=== PATIENT | male | born 1945 | race Caucasian/White ===

== ENCOUNTER 2021-08-02 07:54 | Day surgery (SDC) | payer OTHER ==
[~2021-08-02] VITALS: Ht 182.9 cm; Wt 73.9 kg
[2021-08-02] MEDS ORDERED: ATEN25 PO (08:36)
[2021-08-02] MEDS ORDERED: NORVASC10 MG PO (08:36)
[2021-08-02] MEDS ORDERED: LISI20 PO (08:37)
[2021-08-02] MEDS ORDERED: FOLI1 PO (08:37)
[2021-08-02] MEDS ORDERED: Ocuvite Preser1 EACH PO (08:38)
--- NOTE | 2021-08-02 08:58 | NUR ---
Ambulatory in Day Surgery History, Chart, Medications and Allergies reviewed before start of procedure. Lungs clear T/O to Auscultation. Pre-Op teaching done. Pt verbalizes understanding. Patient States Post-Procedure ride home has been arranged.
== END 2021-08-02 12:05 | disposition home or self-care (01) ==
LOC: ORSCMMR 07:54 → ORD 09:30 → ORSCMMR 09:30
PROVIDERS: Surgery
PROC: 0YU60JZ Supplement Left Inguinal Region with Synthetic Substitute, Open Approach (ICD-10-PCS; principal; 2021-08-02 09:30)
DX: K40.90 Unilateral inguinal hernia, without obstruction or gangrene, not specified as recurrent (principal); I10 Essential (primary) hypertension; K21.9 Gastro-esophageal reflux disease without esophagitis; B19.20 Unspecified viral hepatitis C without hepatic coma; A69.20 Lyme disease, unspecified; Z79.899 Other long term (current) drug therapy
CPT/HCPCS: A9270; C1781; J0690; J1100; J1885; J2250; J2370; J2405; J2704; J3010; J7120

== ENCOUNTER 2023-07-29 14:07 | Emergency (ER) | payer OTHER ==
[~2023-07-29] VITALS: Ht 182.9 cm; Wt 72.6 kg
[~2023-07-29 14:07] MED LIST: AMLO10 PO; ATEN25 PO; BUME2 PO; COLACE100 MG PO; ELIQUIS5 M2 PO; ELIQUIS5 M3 PO; FOLI1 PO; LISI20 PO; MELATONIN5 M1 PO; METAMUCIL POWD798 GM PO; METO25 PO; MIDO5 PO; MIRALAX17 GM; MIRALAX17 GM PO; MULVITA PO; NORVASC10 MG PO; OMEP20ER PO; OXYC10TA19 PO; Ocuvite Preser1 EACH PO; PRESERVISION A1 EAC2; SENN187 PO; SODCHL1 PO; TAMS.4ER PO; URE-NA PO; VITAMIN D325 MC3 PO; Vitamin B Comple1 EA PO; Vitamin D1000 UNI1 PO
[2023-07-29] MEDS ORDERED: NS 1,000 ML IV ONE (14:42)
[2023-07-29] MEDS ORDERED: Diltiazem HCl 5 MG / ML 5ML Vial IV ONE (15:00)
[2023-07-29 15:07] LABS: BASOPHILS ABSOLUTE AUTO 0.03 K/mm3 (0.00-0.23); BASOPHILS PERCENT AUTO 0 % (0-2); EOSINOPHILS ABSOLUTE AUTO 0.01 K/mm3 (0.00-0.68); EOSINOPHILS PERCENT AUTO 0 % (0-6); Hematocrit 38.6 % (37.0-53.0); Hemoglobin 13.6 g/dL (13.5-17.5); IMMATURE GRAN ABSOLUTE AUTO 0.19 K/mm3 (0.00-0.10); IMMATURE GRAN PERCENT AUTO 2 % (0-1); LYMPHOCYTES ABSOLUTE AUTO 0.57 K/mm3 (0.84-5.20); LYMPHOCYTES PERCENT AUTO 5 % (21-46); MONOCYTES ABSOLUTE AUTO 0.94 K/mm3 (0.16-1.47); MONOCYTES PERCENT AUTO 9 % (4-13); Mean Corpuscular HGB 31.3 pg (26.0-34.0); Mean Corpuscular HGB Conc 35.2 g/dL (31.5-36.5); Mean Corpuscular Volume 89 fL (80-100); NEUTROPHILS ABSOLUTE AUTO 9.03 K/mm3 (1.96-9.15); NEUTROPHILS PERCENT AUTO 84 % (41-73); Platelet Count 431 K/mm3 (150-400); RDW Coefficient Variation 13.3 % (11.7-14.2); RDW Standard Deviation 43.5 fL (35.1-46.3); Red Blood Cell Count 4.34 M/mm3 (4.30-5.90); White Blood Cell Count 10.77 K/mm3 (4.00-11.30)
[2023-07-29] MEDS ORDERED: dilTIAZem HCL 125 MG in Dextrose 5% 100 ML IV SCH (15:25)
[2023-07-29 15:45] LABS: Magnesium, Blood 1.5 mg/dL (1.6-2.4)
[2023-07-29 15:47] LABS: Thyroid Stimulating Hormone 1.89 uIU/mL (0.360-4.800)
[2023-07-29] MEDS ORDERED: Etomidate 2MG / ML 10ML Vial IV ONE (15:50)
[2023-07-29] MEDS ORDERED: Mag Sulfate 1 GM/D5% 100ML 100 ML IV ONE (15:55)
[2023-07-29] MEDS ORDERED: Adenosine 3 MG/ML 2 ML Vial IV ONE (16:00)
[2023-07-29 17:06] LABS: Albumin, Blood 2.7 g/dL (3.4-5.0); Albumin/Globulin Ratio 0.8 (0.8-1.8); Bilirubin, Total 0.2 mg/dL (0.1-1.0); Bun/Creatinine Ratio 69.6 (12.0-20.0); Calcium, Blood 8.7 mg/dL (8.5-10.1); Creatinine, Blood 0.92 mg/dL (0.60-1.20); Globulin, Blood 3.4 g/dL (2.2-4.0); Potassium, Blood 4.3 mmol/L (3.5-5.5); Total Protein, Blood 6.1 g/dL (6.4-8.2)
[2023-07-29 20:00] VITALS: BP 112/98
== END 2023-07-29 20:25 | disposition home or self-care (01) ==
LOC: ER 14:07
PROVIDERS: Physician Assistant; Student in an Organized Health Care Education/Training Program
DX: I48.92 Unspecified atrial flutter (principal); E83.42 Hypomagnesemia; I10 Essential (primary) hypertension; Z88.1 Allergy status to other antibiotic agents; Z88.8 Allergy status to other drugs, medicaments and biological substances; Z79.01 Long term (current) use of anticoagulants; Z79.899 Other long term (current) drug therapy
CPT/HCPCS: 51702; 71045; 80053; 83735; 84443; 85025; 92960; 93005; 93010; 96365-59; 96366-59; 96375-59; 99285-25; J0153; J3475; J7030

== ENCOUNTER → 2023-08-19 | Outpatient (CLI) | payer OTHER ==
[2023-08-19 11:41] LABS: Creatinine Urine 24.2 mg/dL (27.00-270.00); Microalbumin, Urine Quant. 17.6 mg/L (0.000-20.000); Protein, Urine Quantitative 11.7 mg/dL (0.0-11.9)
== END | disposition home or self-care (01) ==
LOC: LAB SHORT 09:14 → LAB FUT 08-15 14:20
PROVIDERS: Internal Medicine Nephrology
DX: N18.2 Chronic kidney disease, stage 2 (mild) (principal); D63.1 Anemia in chronic kidney disease; N25.81 Secondary hyperparathyroidism of renal origin; E78.00 Pure hypercholesterolemia, unspecified; R76.9 Abnormal immunological finding in serum, unspecified; R94.5 Abnormal results of liver function studies; G60.9 Hereditary and idiopathic neuropathy, unspecified
CPT/HCPCS: 81050; 82043; 82570; 84156

== ENCOUNTER → 2023-09-06 | Outpatient (CLI) | payer OTHER ==
[~2023-09-06] MED LIST changes: +METO25ER PO; +MORP15ER PO; +OXYC5 PO
[2023-09-06 13:43] LABS: Albumin, Blood 2.3 g/dL (3.4-5.0); Anion Gap 11 mmol/L (3-11); Blood Urea Nitrogen 45 mg/dL (8-24); Bun/Creatinine Ratio 46.9 (12.0-20.0); CO2, Blood 30 mmol/L (21-32); Calcium, Blood 10.3 mg/dL (8.5-10.1); Chloride, Blood 92 mmol/L (98-108); Creatinine, Blood 0.96 mg/dL (0.60-1.20); Glomerular Filtration Rate 82 (60-); Glucose, Blood 110 mg/dL (70-99); Phosphorus, Blood 3.1 mg/dL (2.5-4.9); Sodium, Blood 129 mmol/L (136-145)
== END ==
LOC: LAB 12:09 → LAB SHORT 12:09
PROVIDERS: Internal Medicine Nephrology
DX: I12.9 Hypertensive chronic kidney disease with stage 1 through stage 4 chronic kidney disease, or unspecified chronic kidney disease (principal); N18.2 Chronic kidney disease, stage 2 (mild); D63.1 Anemia in chronic kidney disease
CPT/HCPCS: 80069; 85018

== ENCOUNTER 2023-09-16 10:32 | Emergency (ER) | payer OTHER ==
[~2023-09-16] VITALS: Ht 182.9 cm; Wt 63.5 kg
[~2023-09-16 10:32] MED LIST changes: -METO25ER PO; -MORP15ER PO; -OXYC5 PO
[2023-09-16] MEDS ORDERED: Ketorolac Tromethamine 30mg Vial IV ONE (11:00)
[2023-09-16] MEDS ORDERED: Morphine Sulfate IR 15 MG Tab PO ONE (11:00)
[2023-09-16 11:39] LABS: Bun/Creatinine Ratio 58.6 (12.0-20.0); Calcium, Blood 10.2 mg/dL (8.5-10.1); Creatinine, Blood 0.92 mg/dL (0.60-1.20); Potassium, Blood 4.8 mmol/L (3.5-5.5)
[2023-09-16] MEDS ORDERED: METO25ER PO (12:33)
[2023-09-16] MEDS ORDERED: OXYC5 PO ×3 (12:33→13:48)
[2023-09-16 12:35] LABS: Bicarbonate Venous 26.7 mmol/L (24.0-30.0); PCO2 Venous 35.1 mmHg (38-42); pH Blood Venous 7.48 (7.34-7.37)
[2023-09-16 12:36] LABS: Base Excess Venous 2.4 mmol/L
[2023-09-16] MEDS ORDERED: MORP15ER PO ×2 (13:40→13:48)
[2023-09-16 14:07] VITALS: BP 110/68
== END 2023-09-16 16:22 | disposition home or self-care (01) ==
LOC: ER 10:32
PROVIDERS: Student in an Organized Health Care Education/Training Program
DX: R07.89 Other chest pain (principal); K59.03 Drug induced constipation; T40.605A Adverse effect of unspecified narcotics, initial encounter; C45.7 Mesothelioma of other sites; J91.0 Malignant pleural effusion; I10 Essential (primary) hypertension; Z88.8 Allergy status to other drugs, medicaments and biological substances; Z79.01 Long term (current) use of anticoagulants; Z79.899 Other long term (current) drug therapy
CPT/HCPCS: 71046; 80048; 82803; 93005; 93010; 96374; 99285-25; A9270; J1885